=== PATIENT | male | born 1990 | race Asian ===

== ENCOUNTER 2021-11-24 08:28 | Day surgery (SDC) | payer MEDICAID, SELFPAY ==
[~2021-11-24] VITALS: Ht 170.2 cm; Wt 54.4 kg
[2021-11-24] MEDS ORDERED: MIDAZOLAM HCL 5 MG/5 ML VIAL ONE (11:16)
[2021-11-24] MEDS ORDERED: fentaNYL CITRATE/PF 100 MCG/2 ML AMP ONE (11:16)
[2021-11-24 15:46] VITALS: BP_SYST 103
== END 2021-11-24 12:25 | disposition home or self-care (01) ==
LOC: SDS 08:28 → SMU 08:34 → SDS 12:25
PROVIDERS: ATTEND Internal Medicine
DX: R10.11 Right upper quadrant pain (principal); K29.70 Gastritis, unspecified, without bleeding; Z79.899 Other long term (current) drug therapy; Z20.822 Contact with and (suspected) exposure to COVID-19
CPT/HCPCS: 36415; 43239; 87081; 87426; 88305; 88312; 88313; G0378; J2250; J3010